=== PATIENT | female | born 1965 | race Caucasian/White ===

== ENCOUNTER 2021-01-18 19:17 | Emergency (ER) | payer BC, SELFPAY ==
[2021-01-18] VITALS (7 sets, daily range): BP systolic 108–112; BP diastolic 53–56; PULSE 71–77; RESP 15; TEMP 37.2; O2SAT 97–100; BMI 22.6
--- NOTE | 2021-01-18 19:27 | DI.RAD.S_ITS ---
PROCEDURE: XR CHEST 2V INDICATIONS: sudden pain upper left chest TECHNIQUE: 2 views of the chest were acquired. COMPARISON: None. FINDINGS: Surgical changes and devices: None. Lungs and pleura: Lungs are clear. No pleural effusions or pneumothorax. Mediastinum: Mediastinal contours are normal. Heart size is normal. Bones and chest wall: No suspicious bony abnormalities. Soft tissues appear unremarkable. IMPRESSION: No acute cardiopulmonary disease. Dictated by: Bria Head M.D. on 01/18/2021 at 20:01 Approved by: Bria Head M.D. on 01/18/2021 at 20:01
--- NOTE | 2021-01-18 20:14 | ED.CHESTPAIN ---
HPI - Chest Pain General Chief Complaint: Chest Pain Stated Complaint: fall 4 days ago, chest pain now. Time Seen by Provider: 01/18/21 20:00 Source: patient Mode of arrival: Wheelchair Limitations: no limitations History of Present Illness HPI narrative: 55-year-old woman presents with severe left-sided chest pain that is so painful she is having trouble moving or breathing. She notes that she had bicep surgery on September 29 and developed a subsequent frozen shoulder on the left. She had a steroid injection into the shoulder about 2 weeks ago and then 5-6 days ago while stepping from her boat onto the dock she stumbled fell and landed on the left shoulder. She has been having increasing pain in the area and has been dealing with it with ibuprofen and Tylenol. This evening with no obvious inciting event it began hurting dramatically more to the point where she was unable to tolerate the pain. She was having so much pain that she was having difficulty breathing but not overtly short of breath. She describes no fevers, cough no rashes or abnormalities over her upper chest, no nausea vomiting or diarrhea. Related Data Previous Rx's Medication Instructions Recorded ondansetron 4 mg PO Q6H PRN #14 ea 01/18/21 oxycodone-acetaminophen 1 tab PO Q6H PRN 5 Days #14 tab 01/18/21 Allergies Allergy/AdvReac Type Severity Reaction Status Date / Time codeine Allergy Verified 01/18/21 19:33 Review of Systems Review of Systems Narrative: Remainder of complete review of systems is otherwise unremarkable except for that included in the HPI. Patient History Medical History Biceps muscle tear Frozen shoulder Social History Smoking Status: Unknown if ever smoked Smoking Status: Unknown if ever smoked alcohol intake frequency: holidays/special occasions only Substance Use Type: does not use Exam Narrative Exam Narrative: General: Healthy appearing, in severe distress Well-nourished well-developed Neck: No JVD, supple Respiratory: Lungs are clear to auscultation, no wheezing no rales no rhonchi. Full and symmetrical air movement Cardiac: Regular rate and rhythm no murmurs no bruits Abdomen: Soft, nontender, good bowel tones, no flank pain Skin: Warm and dry, no rashes Neurologic: Grossly neurologically intact with no obvious asymmetries or abnormalities Extremities: Tender left shoulder left anterior chest wall and left costochondral margins. No skin changes. No obvious bony deformity. Psych: Cooperative, appropriate insight and affect Initial Vital Signs Initial Vital Signs: Vital Signs Temperature 99.0 F 01/18/21 19:25 Pulse Rate 76 01/18/21 19:25 Respiratory Rate 15 01/18/21 19:25 Blood Pressure 108/56 L 01/18/21 19:25 Pulse Oximetry 97 01/18/21 19:25 Course Orders Ordered: ED Orders 01/18/21 19:27 XR chest 2V Stat 01/18/21 19:28 EKG-12 Lead Stat Discontinued Medications Ketorolac Tromethamine (Ketorolac 30 Mg/Ml Vial) 30 mg IM NOW ONE Stop: 01/18/21 20:41 Last Admin: 01/18/21 20:47 Dose: 30 mg Documented by: [email or web address] Ondansetron HCl (Ondansetron 4 Mg Odt) 4 mg SL NOW ONE Stop: 01/18/21 20:41 Last Admin: 01/18/21 20:46 Dose: 4 mg Documented by: [email or web address] Oxycodone/Acetaminophen (Oxycodone/Acetaminophen 5/325 Tablet) 1 tab PO NOW ONE Stop: 01/18/21 20:41 Last Admin: 01/18/21 20:47 Dose: 1 tab Documented by: [email or web address] Oxycodone/Acetaminophen (Oxycodone/Apap 5/325 Prepack) 1 bottle MISC SEEINSTR ONE Stop: 01/18/21 22:02 Last Admin: 01/18/21 22:20 Dose: 1 bottle Documented by: [email or web address] Vital Signs Vital signs: Vital Signs - 8 hr 01/18/21 19:57 01/18/21 20:00 01/18/21 20:30 Pulse Rate 75 74 74 Blood Pressure Pulse Oximetry 97 97 98 01/18/21 21:00 01/18/21 21:19 01/18/21 21:30 Pulse Rate 71 74 77 Blood Pressure 112/54 L 110/53 L Pulse Oximetry 98 100 98 MDM - Chest Pain Medical Records Data Attestation: I reviewed the patient's medical records. Lab Data Attestation: I reviewed the patient's lab results. Imaging Data Chest x-ray: Radiologist's Impression: FINDINGS: Surgical changes and devices: None. Lungs and pleura: Lungs are clear. No pleural effusions or pneumothorax. Mediastinum: Mediastinal contours are normal. Heart size is normal. Bones and chest wall: No suspicious bony abnormalities. Soft tissues appear unremarkable. IMPRESSION: No acute cardiopulmonary disease. Dictated by: Bria Head M.D. on 01/18/2021 at 20:01 [facility] Narrative Medical decision making narrative: 55-year-old woman presents with severe left shoulder chest pain of uncertain etiology. She fell 5 weeks ago on shoulder that was already sore and having symptoms of frozen shoulder syndrome. She had been controlling the pain until this evening. She does not describe specific new trauma to explain why tonight would be worse. There is no evidence of cardiac or gastric or esophageal etiology. No abnormal findings on chest x-ray no pneumothorax. She significantly improved after IM Toradol and a single Percocet. Will have her continue with appropriate pain control, reassurance is given there is no evidence of developing infection in the shoulder. She is safe for home discharge Discharge Plan Departure Patient Disposition: Home Clinical Impression: Musculoskeletal chest pain Instructions: DI for Musculoskeletal Pain Activity Restrictions/Additional Instructions: Thank you for coming in today I am not sure why you had such a dramatic exacerbation of your pain this evening however I do think it was very appropriate to come to the ER for further evaluation. Normal, no fractures, no enlarged heart, no collapsed lung. Your vital signs and clinical exam do not suggest an acute pulmonary embolism and typically they do not cause this type of pain. Your exam is consistent with musculoskeletal pain. Your given a shot of Toradol (similar to ibuprofen) as well as a single dose of Percocet and some nausea medication. That helped significantly with pain overall. The I think your safe to go home and treat this as continued musculoskeletal pain after your recent fall. Using 400 mg of ibuprofen (2 [id number]-hmqhzry pills) and 1 Tylenol every 6 hours can be very helpful in controlling pain. For severe pain using 400 mg of ibuprofen and 1 Percocet. If you do use the Percocet you can also use the ondansetron/Zofran to prevent nausea. If you have recurrent symptoms, her feeling short of breath, developed fevers or chills it would be very appropriate to return to the ER for further evaluation I hope that you feel better. Prescriptions: New oxycodone-acetaminophen 5-325 mg tablet 1 tab PO Q6H PRN (Reason: pain) 5 Days Qty: 14 RF: 0 ondansetron 4 mg film 4 mg PO Q6H PRN (Reason: nausea and vomiting) Qty: 14 RF: 0
[2021-01-18] MEDS: ONDANSETRON 4 MG ODT SL (20:46)
[2021-01-18] MEDS: KETOROLAC 30 MG/ML VIAL IM (20:47)
[2021-01-18] MEDS: OXYCODONE/ACETAMINOPHEN 5/325 TABLET 1 TAB PO (20:47)
[2021-01-18] MEDS: OXYCODONE/APAP 5/325 PREPACK 1 BOTTLE MISC (22:20)
== END 2021-01-18 22:25 | disposition home or self-care (01) ==
PROVIDERS: Emergency Provider Emergency Medicine
DX: R07.89 Other chest pain (principal)
CPT/HCPCS: 71046; 93005; 93010; 96372; 99283; 99284; J1885

== ENCOUNTER 2023-04-07 18:11 | Emergency (ER) | payer OTHER, SELFPAY ==
[2023-04-07 18:15] VITALS: BP 118/70; PULSE 76; RESP 16; TEMP 36.7; O2SAT 99
--- NOTE | 2023-04-07 18:34 | ED_ITS ---
HPI - Extremity Injury (Lower) General Chief Complaint: Extremity Injury, Lower Stated Complaint: rt foot injury Time Seen by Provider: 04/07/23 18:13 Source: patient and family Mode of arrival: Wheelchair History of Present Illness HPI Narrative: 57-year-old woman with no significant medical problems was standing on a her barrier trying to take a picture when she slipped fell landing on her left heel with laceration over the posterior portion of the heel a large hematoma to the left thigh. The wound was dressed and because of concerns for tendon injuries he was sent to [place] for further evaluation. She reports some numbness over the dorsum of her foot. She does not report any acute ankle knee hip or low back pain. There were no other injuries sustained with the fall. Related Data Previous Rx's Medication Instructions Recorded ondansetron 4 mg oral soluble film 4 mg PO Q6H PRN nausea and 01/18/21 vomiting #14 ea Allergies Allergy/AdvReac Type Severity Reaction Status Date / Time codeine Allergy Verified 01/18/21 19:33 NSAIDS (Non-Steroidal AdvReac Unknown Verified 04/07/23 18:24 Anti-Inflamma narcotics Allergy Intermediate Hives Uncoded 04/07/23 18:24 Review of Systems Review of Systems Narrative: Pertinent positive and negative findings as per HPI Patient History Medical History Biceps muscle tear Frozen shoulder Surgical History History of nephrectomy Social History Smoking Status: Unknown if ever smoked Smoking Status: Unknown if ever smoked alcohol intake frequency: holidays/special occasions only Substance Use Type: does not use Exam Initial Vital Signs Initial Vital Signs: Vital Signs Temperature 98.1 F 04/07/23 18:15 Pulse Rate 76 04/07/23 18:15 Respiratory Rate 16 04/07/23 18:15 Blood Pressure 118/70 04/07/23 18:15 Pulse Oximetry 99 04/07/23 18:15 Oxygen Delivery Method Room Air 04/07/23 18:15 General: Healthy appearing, in no acute distress. Able to give a complete and coherent history. Well-nourished well-developed Neck: No midline tenderness supple Respiratory: Full and symmetrical air movement Abdomen: Soft, nontender, no flank pain Skin: Large abrasion with hematoma to the right posterior thigh no overt laceration. Neurologic: Grossly neurologically intact with no obvious asymmetries or abnorm alities Extremities: She is able to stand and bear weight on the right leg. There is no calcaneal tenderness with compression. There is m 8cm flap like laceration over the calcaneus posteriorly that does not involve tendon Psych: Cooperative, appropriate insight and affect Procedures Laceration Repair right heel: Time of procedure: 19:13 Site: lower extremity Side (If applicable): right Size (cm): 8 Description: flap Depth: simple, single layer Local Anesthetic: lidocaine 1% Amount of anesthesia used (mL): 8 Pre-repair: wound explored, irrigated extensively and deep structures intact Skin layer closed with: nylon Skin layer suture size: 3-0 Number of sutures: 6 Technique: horizontal mattress Course Orders Ordered: Discontinued Medications Lidocaine HCl (Lidocaine 1% 20 Ml) 20 ml INJ INTRA-OP ONE Stop: 04/07/23 18:35 Last Admin: 04/07/23 18:41 Dose: 20 ml Vital Signs Vital signs: Vital Signs - 8 hr 04/07/23 18:15 Temperature 98.1 F Pulse Rate 76 Respiratory Rate 16 Blood Pressure 118/70 Pulse Oximetry 99 Oxygen Delivery Method Room Air MDM - Extremity Injury (Lower) MDM Narrative Medical decision making narrative: CC: Slipped off of barrier with a large contusion to the left thigh and laceration to the left heel Data collected from: patient, friend Differential considered: Fracture, tendon laceration fascial involvement, simple laceration Exam documented above, pertinent findings include: Large hematoma right posterior thigh, 8 cm laceration flap like otherwise clean no tendon involvement over the back of her heel. Once the initial dressing was removed all of the sensation loss over the dorsum of the foot completely resolved and she is otherwise neurovascularly intact Imaging studies independently reviewed: She is able to bear weight without tenderness and imaging was not felt to be required at this time Treatments: Laceration repair Discussion: 57-year-old woman with flap-like laceration to the right heel and large hematoma to the right thigh. Will use Tylenol for pain control. 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 She is up-to-date on tetanus, discussed anticipated course of resolution of the large hematoma. At this point she is safe for discharge home Discharge Plan Departure Patient Disposition: Home Clinical Impression: Laceration of heel without complication Qualifiers: Encounter type: initial encounter Laterality: right Qualified Code(s): S91.311A - Laceration without foreign body, right foot, initial encounter Contusion of left thigh Qualifiers: Encounter type: initial encounter Qualified Code(s): S70.12XA - Contusion of left thigh, initial encounter Instructions: DI for Laceration Repair, DI for Contusion Activity Restrictions/Additional Instructions: Thank you for coming in today Fortunately this is just a flap like laceration that was relatively easily repaired. There is no tendon involvement. I do not suspect any fractures. I would recommend that the stitches come out on or about April 17. Please keep the wound clean with antibiotic ointment applied for the 1st couple of days. That seems like it is getting infected, increasing redness drainage or pain you do need to be seen and re-evaluated. The contusion on your thigh is likely going to be the bigger source of discomfort for you. It is going to be a very large bruise and the entire back of your leg down all the way to your heal well end up being delightful colors of green and yellow as it heals. It is okay to walk on it. You may find that using an [place] wrap and some compression simply helps for comfort If it is hurting significantly ice and keeping the leg elevated. Please recognize that you are going to hurt more everywhere tomorrow. If you find that you are getting worse or develop any new symptoms, please feel free to return to the emergency department for further evaluation. Prescriptions: No Action ondansetron 4 mg film 4 mg PO Q6H PRN (Reason: nausea and vomiting) Qty: 14 0RF Stand Alone Forms: Patient Portal/API
[2023-04-07] MEDS: LIDOCAINE 1% 20 ML INJ (18:41)
[2023-04-07] MEDS: BACITRACIN OINT 0.9 GM PCKT 1 APPLIC TOP (19:18)
--- NOTE | 2023-04-07 19:35 | PC.NURSE ---
Washed patients foot with chlorprep soapy water and dried before wrap applied.
[2023-04-07 19:40] VITALS: BP 130/60; PULSE 80; RESP 16; O2SAT 98
== END 2023-04-07 19:43 | disposition home or self-care (01) ==
PROVIDERS: Emergency Provider Emergency Medicine
DX: S91.311A Laceration without foreign body, right foot, initial encounter (principal); S70.11XA Contusion of right thigh, initial encounter; W17.89XA Other fall from one level to another, initial encounter
CPT/HCPCS: 12004; 99283